=== PATIENT | female | born 2000 | race Hispanic/Latino ===

== ENCOUNTER 2022-09-01 11:54 | Emergency (ER) | payer OTHER ==
[~2022-09-01] VITALS: Ht 157.5 cm; Wt 51.3 kg
[2022-09-01] MEDS ORDERED: NS 1,000 ML IV ONE (15:10)
[2022-09-01] MEDS ORDERED: ONDANSETRON 4MG 2ML VIAL IV ONE (15:10)
[2022-09-01 15:22] LABS: BASO % 0.5 % (0.0-1.0); EOS # 0.1 10^3/uL (0.0-0.5); EOS % 1.4 % (0.0-3.0); HEMATOCRIT 40.8 % (36.0-47.0); HEMOGLOBIN 12.8 g/dl (12.0-15.5); LYMPH # 1.5 10^3/uL (1.5-5.0); LYMPH % 22.8 % (24.0-44.0); MEAN CORPUSCULAR HEMOGLOBIN 27.1 pg (27.0-33.0); MEAN CORPUSCULAR HGB CONC 31.4 g/dl (32.0-36.5); MEAN CORPUSCULAR VOLUME 86.4 fl (80.0-96.0); MONO # 0.4 10^3/uL (0.0-0.8); MONO % 6.3 % (2.0-8.0); NEUTROPHILS # 4.4 10^3/uL (1.5-8.5); NEUTROPHILS % 68.5 % (36.0-66.0); PLATELET COUNT, AUTOMATED 169 10^3/uL (150-450); RED BLOOD COUNT 4.72 10^6/uL (4.00-5.40); WHITE BLOOD COUNT 6.5 10^3/uL (4.0-10.0)
[2022-09-01 15:41] LABS: LIPASE 34 U/L (12-53)
[2022-09-01 15:43] LABS: ALBUMIN 3.9 G/DL (3.2-5.2); ALKALINE PHOSPHATASE 65 U/L (46-116); ALT/SGPT < 9 U/L (7.0-40); AST/SGOT 9 U/L (<34); BILIRUBIN,DIRECT 0.2 MG/DL (<0.4); BILIRUBIN,TOTAL 0.5 MG/DL (0.3-1.2); BLOOD UREA NITROGEN 6 MG/DL (9-23); CALCIUM LEVEL 8.9 MG/DL (8.5-10.1); CARBON DIOXIDE LEVEL 22 MMOL/L (20-31); CHLORIDE LEVEL 101 MMOL/L (98-107); CREATININE FOR GFR 0.37 MG/DL (0.55-1.30); GLUCOSE, FASTING 79 MG/DL (60-100); POTASSIUM SERUM 4.1 MMOL/L (3.5-5.1); SODIUM LEVEL 134 MMOL/L (136-145); TOTAL PROTEIN 7.7 G/DL (5.7-8.2)
[2022-09-01] MEDS ORDERED: UNIS25TA3 PO (15:52)
[2022-09-01] MEDS ORDERED: PYRI25TA3 PO (15:52)
[2022-09-01] MEDS ORDERED: ONDA4TAB6 PO (15:52)
[2022-09-01 16:11] LABS: HCG, SERUM QUANTITATIVE 118677.6 MIU/ML (<4.2)
[2022-09-01] MEDS ORDERED: CEPH500C PO (18:42)
[2022-09-01 19:11] VITALS: BP 102/56; TEMP 98.9; O2SAT 99
== END 2022-09-01 19:11 | disposition home or self-care (01) ==
LOC: M ED 11:54
DX: O21.0 Mild hyperemesis gravidarum (principal); Z3A.10 10 weeks gestation of pregnancy; O23.91 Unspecified genitourinary tract infection in pregnancy, first trimester; Z87.891 Personal history of nicotine dependence
CPT/HCPCS: 76801; 80048; 80076; 81001; 83690; 84702; 85025; 87086; 93976; 96374; 99284; J2405

== ENCOUNTER → 2022-10-07 | Outpatient (REF) | payer OTHER ==
[~2022-10-07] MED LIST: CEPH500C PO; ONDA4TAB6 PO; PYRI25TA3 PO; UNIS25TA3 PO
== END ==
LOC: M PLALAB 14:28
PROVIDERS: ATTEND Advanced Practice Midwife
DX: Z34.02 Encounter for supervision of normal first pregnancy, second trimester (principal); Z53.9 Procedure and treatment not carried out, unspecified reason

== ENCOUNTER → 2022-11-24 | Outpatient (CLI) | payer OTHER | LOC: M WHC 12:30 | PROVIDERS: ATTEND Advanced Practice Midwife | DX: Z34.02 Encounter for supervision of normal first pregnancy, second trimester (principal) ==

== ENCOUNTER → 2023-01-04 | Outpatient (CLI) | payer OTHER ==
[2023-01-04 16:58] LABS: HEMATOCRIT 34.1 % (36.0-47.0); HEMOGLOBIN 10.7 g/dl (12.0-15.5); MEAN CORPUSCULAR HEMOGLOBIN 28.1 pg (27.0-33.0); MEAN CORPUSCULAR HGB CONC 31.4 g/dl (32.0-36.5); MEAN CORPUSCULAR VOLUME 89.5 fl (80.0-96.0); PLATELET COUNT, AUTOMATED 165 10^3/uL (150-450); RED BLOOD COUNT 3.81 10^6/uL (4.00-5.40)
[2023-01-04 17:30] LABS: HIV 1&2 SCREEN NEGATIVE (NEGATIVE)
[2023-01-04 17:37] LABS: HEPATITIS C VIRUS ABY INDEX 0.04 INDEX (<0.8)
[2023-01-04 18:42] LABS: CHLAMYDIA DNA AMPLIFICATION NEGATIVE (NEGATIVE); GC DNA AMPLIFICATION NEGATIVE (NEGATIVE)
== END ==
LOC: M PLALAB 11:51
PROVIDERS: ATTEND Advanced Practice Midwife
DX: Z34.02 Encounter for supervision of normal first pregnancy, second trimester (principal)

== ENCOUNTER → 2023-01-04 | Outpatient (CLI) | payer OTHER | LOC: M PLALAB 11:48 | PROVIDERS: ATTEND Specialist | DX: Z34.02 Encounter for supervision of normal first pregnancy, second trimester (principal) ==

== ENCOUNTER 2023-02-25 16:36 | Inpatient (IN) | payer OTHER ==
[~2023-02-25] VITALS: Ht 157.5 cm; Wt 68.9 kg
[2023-02-25] VITALS (13 sets, daily range): BP systolic 117–175; BP diastolic 55–102
[~2023-02-25 16:36] MED LIST changes: -PRENTAB9 PO
[2023-02-25] MEDS ORDERED: PRENTAB9 PO (16:59)
[2023-02-25] MEDS ORDERED: HOME MED LIST COMPLETE! XX SCH (17:00)
[2023-02-25 17:58] LABS: HEMATOCRIT 32.3 % (36.0-47.0); HEMOGLOBIN 9.9 g/dl (12.0-15.5); MEAN CORPUSCULAR HEMOGLOBIN 25.4 pg (27.0-33.0); MEAN CORPUSCULAR HGB CONC 30.7 g/dl (32.0-36.5); PLATELET COUNT, AUTOMATED 128 10^3/uL (150-450); RED BLOOD COUNT 3.89 10^6/uL (4.00-5.40); WHITE BLOOD COUNT 10.9 10^3/uL (4.0-10.0)
[2023-02-25 18:00] LABS: TOTAL PROTEIN,RANDOM URINE 6.2 MG/DL (0.0-14.0)
[2023-02-25 18:15] LABS: URIC ACID 4.5 MG/DL (3.1-7.8)
[2023-02-25 18:17] LABS: LDH LACTATE DEHYDROGENASE 190 U/L (120-246)
[2023-02-25 18:18] LABS: ALT/SGPT 14 U/L (7.0-40); AST/SGOT 23 U/L (<34); BILIRUBIN,TOTAL 0.4 MG/DL (0.3-1.2); CREATININE FOR GFR 0.48 MG/DL (0.55-1.30)
[2023-02-25] MEDS: BETAMETHASONE SOLUSPAN 6MG/ML 5ML VIAL IM SCH (18:45)
[2023-02-25] MEDS ORDERED: LIDOCAINE 1% MDV 20ML VIAL INFIL PRN (19:20)
[2023-02-25] MEDS ORDERED: OXYTOCIN DRIP 30 UNITS in IV 1 EA IV PRN (19:20)
[2023-02-25] MEDS: miSOPROStol 50MCG 1/2 TABLET SL SCH (21:02)
[2023-02-26] VITALS (16 sets, daily range): BP systolic 117–151; BP diastolic 56–90; O2SAT 99
[2023-02-26] MEDS: miSOPROStol 50MCG 1/2 TABLET SL SCH (01:01)
[2023-02-26] MEDS ORDERED: PENICILLIN G POTASSIUM 5 MU IV 5 MU in D5W MINI-BAG PLUS 100 ML IV STA (01:49)
[2023-02-26] MEDS ORDERED: PROMETHAZINE 25MG/ML 1ML VIAL IV ONE (02:45)
[2023-02-26] MEDS ORDERED: BUTORPHANOL 2 MG/ML 1ML VIAL IV ONE (02:45)
[2023-02-26] MEDS: PEN G POT 3,000,000 UNIT/50 ML 3,000,000 UNIT in IV 1 EA IV SCH ×2 (06:03→10:43)
[2023-02-26] MEDS: BETAMETHASONE SOLUSPAN 6MG/ML 5ML VIAL IM SCH (06:30)
[2023-02-26] MEDS: PRENATAL VITAMINS CHEWABLE TABLET PO SCH (09:00)
[2023-02-26] MEDS ORDERED: OXYTOCIN DRIP 30 UNITS in IV 1 EA IV SCH ×2 (10:40→13:35)
[2023-02-26 12:57] LABS: HEMATOCRIT 33.2 % (36.0-47.0); HEMOGLOBIN 10.1 g/dl (12.0-15.5); MEAN CORPUSCULAR HEMOGLOBIN 25.6 pg (27.0-33.0); MEAN CORPUSCULAR HGB CONC 30.4 g/dl (32.0-36.5); MEAN CORPUSCULAR VOLUME 84.1 fl (80.0-96.0); PLATELET COUNT, AUTOMATED 140 10^3/uL (150-450); RED BLOOD COUNT 3.95 10^6/uL (4.00-5.40); WHITE BLOOD COUNT 17.5 10^3/uL (4.0-10.0)
[2023-02-26 13:24] LABS: CORD GAS ABE A -11.5; CORD GAS PCO2 A 53.6 mmHg; CORD GAS PH A 7.144 UNITS; CORD GAS PO2 A 31.7 mmHg; CORD GAS TCO2 A 19.6 MMOL/L
[2023-02-26 13:26] LABS: CORD GAS ABE V -6.3; CORD GAS HCO3 V 20.3 MMOL/L; CORD GAS O2 SAT V 37.1 %; CORD GAS PCO2 V 44.1 mmHg; CORD GAS PH V 7.281 UNITS; CORD GAS PO2 V 18.3 mmHg; CORD GAS SBC V 17.9 MMOL/L; CORD GAS TCO2 V 21.7 MMOL/L
[2023-02-26] MEDS ORDERED: DOCUSATE SODIUM 100MG CAPSULE PO PRN (13:35)
[2023-02-26] MEDS ORDERED: ACETAMINOPHEN TAB 650MG DOSE (2X325MG) PO PRN (13:35)
[2023-02-26] MEDS ORDERED: ACETAMINOPHEN 500 MG TAB PO PRN (13:35)
[2023-02-26] MEDS ORDERED: DIBUCAINE 1% OINTMENT 30GM TOP PRN (13:35)
[2023-02-26] MEDS ORDERED: ANUSOL HC CREAM 30GM TOP PRN (13:35)
[2023-02-26] MEDS ORDERED: RHOGAM 300MCG (1500IU) INJ IM SCH (13:35)
[2023-02-26] MEDS ORDERED: IBUPROFEN 600MG TAB PO PRN (13:35)
[2023-02-26] MEDS: IBUPROFEN 800 MG TAB PO PRN (16:22)
[2023-02-27 06:30] VITALS: BP 150/90
[2023-02-27] MEDS: PRENATAL VITAMINS CHEWABLE TABLET PO SCH (08:26)
[2023-02-27 10:00] VITALS: BP 126/70; O2SAT 98
[2023-02-27] MEDS: IBUPROFEN 800 MG TAB PO PRN (12:34)
[2023-02-27 14:00] VITALS: BP 119/64; O2SAT 97
[2023-02-27 17:41] VITALS: BP 143/79; O2SAT 98
[2023-02-27 22:00] VITALS: BP 143/79; TEMP 98.3; O2SAT 98
[2023-02-27 22:28] VITALS: BP 120/62; O2SAT 98
[2023-02-28 02:34] VITALS: BP 139/80; O2SAT 99
[2023-02-28 06:00] VITALS: BP 134/78; O2SAT 97
[2023-02-28] MEDS ORDERED: COLA100C5 PO (08:36)
[2023-02-28] MEDS ORDERED: ACET-683 PO (08:36)
[2023-02-28] MEDS ORDERED: IBUP-1022 PO (08:36)
[2023-02-28] MEDS ORDERED: medroxyPROGESTERone ACET IM SUSP 150 MG/ML VIAL IM ONE (09:00)
[2023-02-28] MEDS ORDERED: MEASLES,MUMPS,RUBELLA VACCINE INJ (MMR-II) SC.IMMUN ONE (09:00)
[2023-02-28] MEDS: PRENATAL VITAMINS CHEWABLE TABLET PO SCH (09:04)
[2023-02-28 10:00] VITALS: BP 119/69; O2SAT 98
== END 2023-02-28 14:40 | disposition home or self-care (01) | DRG 807 ==
LOC: M LDO 16:36 → M LDI 18:48 → M OBS 02-26 17:36
PROVIDERS: ADMIT Specialist; ATTEND Advanced Practice Midwife
PROC: 3E0P7GC Introduction of Other Therapeutic Substance into Female Reproductive, Via Natural or Artificial Opening (ICD-10-PCS; 2023-02-25)
PROC: 10E0XZZ Delivery of Products of Conception, External Approach (ICD-10-PCS; principal; 2023-02-26)
DX: O14.94 Unspecified pre-eclampsia, complicating childbirth (principal); Z37.0 Single live birth; Z3A.35 35 weeks gestation of pregnancy

== ENCOUNTER → 2023-02-25 | Outpatient (REF) | payer OTHER ==
[~2023-02-25] MED LIST changes: +PRENTAB9 PO
== END ==
LOC: M PLALAB 15:19
PROVIDERS: ATTEND Advanced Practice Midwife
DX: Z34.80 Encounter for supervision of other normal pregnancy, unspecified trimester (principal)

== ENCOUNTER 2025-01-08 18:45 | Emergency (ER) | payer OTHER ==
[~2025-01-08 18:45] MED LIST changes: +ACET-683 PO; +COLA100C5 PO; +IBUP600T42 PO; +ONDA-282 PO; -ONDA4TAB6 PO; +PRENTAB9 PO
[2025-01-08 21:42] LABS: BASO # 0.0 10^3/uL (0.0-0.2); BASO % 0.5 % (0.0-1.0); EOS # 0.1 10^3/uL (0.0-0.5); EOS % 1.2 % (0.0-3.0); LYMPH # 2.4 10^3/uL (1.5-5.0); LYMPH % 28.1 % (24.0-44.0); MONO # 0.6 10^3/uL (0.0-0.8); MONO % 6.9 % (2.0-8.0); NEUTROPHILS # 5.4 10^3/uL (1.5-8.5); NEUTROPHILS % 63.2 % (36.0-66.0); PLATELET COUNT, AUTOMATED 256 10^3/uL (150-450)
[2025-01-08 22:04] LABS: ALT/SGPT 10 U/L (7.0-40); AST/SGOT 18 U/L (<34); CALCIUM LEVEL 8.5 MG/DL (8.5-10.1); CARBON DIOXIDE LEVEL 24 MMOL/L (20-31); CHLORIDE LEVEL 103 MMOL/L (98-107); CREATININE FOR GFR 0.41 MG/DL (0.55-1.30); GLOMERULAR FILTRATION RATE > 90.0 (>60); MAGNESIUM LEVEL 1.8 MG/DL (1.8-2.4); PHOSPHORUS LEVEL 4.2 MG/DL (2.5-4.9); POTASSIUM SERUM 4.0 MMOL/L (3.5-5.1); SODIUM LEVEL 139 MMOL/L (136-145)
[2025-01-08] MEDS: NS (Normal Saline) 0.9% 1,000 ML IV ONE (23:13)
[2025-01-09 00:55] LABS: KETONE, URINE AUTO RFX 1+ mg/dL (NEGATIVE); LEUKOCYTE ESTERASE UR AUTO RFX 1+ (NEGATIVE); MUCUS, URINE RFX LARGE (NEGATIVE); NITRITE, URINE AUTO RFX NEGATIVE (NEGATIVE); RBC, URINE AUTO RFX 1 /HPF (0-3); SQUAM EPITHELIAL CELL UR AURFX 8 /HPF (0-6); WBC, URINE AUTO RFX 17 /HPF (0-3)
[2025-01-09 01:13] VITALS: BP 112/69; TEMP 99.1; O2SAT 100
== END 2025-01-09 01:16 | disposition home or self-care (01) ==
LOC: M ED 18:45
DX: R06.00 Dyspnea, unspecified (principal); R00.2 Palpitations; Z3A.09 9 weeks gestation of pregnancy; I45.10 Unspecified right bundle-branch block; Z79.1 Long term (current) use of non-steroidal anti-inflammatories (NSAID); Z79.810 Long term (current) use of selective estrogen receptor modulators (SERMs)